=== PATIENT | female | born 1980 | race Asian ===

== ENCOUNTER 2017-12-24 01:45 | Emergency (ER) | payer OTHER ==
[~2017-12-24] VITALS: Ht 149.9 cm; Wt 49.9 kg
[2017-12-24 02:04] VITALS: Ht 149.9 cm; Wt 49.9 kg
[2017-12-24 02:54] VITALS: BP 141/94
== END 2017-12-24 02:54 | disposition home or self-care (01) ==
LOC: ED 01:45
DX: M54.2 Cervicalgia (principal); Z88.2 Allergy status to sulfonamides
CPT/HCPCS: J1885

== ENCOUNTER 2017-12-28 20:05 | Emergency (ER) | payer OTHER ==
[~2017-12-28] VITALS: Ht 149.9 cm; Wt 50.8 kg
[2017-12-28 20:45] VITALS: Ht 149.9 cm; Wt 50.8 kg
[2017-12-29 00:03] VITALS: BP 146/122
== END 2017-12-29 00:03 | disposition home or self-care (01) ==
LOC: ED 20:05
DX: M54.12 Radiculopathy, cervical region (principal); Z88.2 Allergy status to sulfonamides

== ENCOUNTER 2018-02-08 17:11 | Emergency (ER) | payer OTHER ==
[~2018-02-08] VITALS: Ht 149.9 cm; Wt 51.7 kg
[2018-02-08 17:28] VITALS: Ht 149.9 cm; Wt 51.7 kg
[2018-02-08 22:12] VITALS: BP 129/78
== END 2018-02-08 22:12 | disposition home or self-care (01) ==
LOC: ED 17:11
DX: M54.12 Radiculopathy, cervical region (principal); Z88.2 Allergy status to sulfonamides; Z87.442 Personal history of urinary calculi
CPT/HCPCS: Q0092

== ENCOUNTER 2018-08-01 19:01 | Emergency (ER) | payer OTHER ==
[~2018-08-01] VITALS: Ht 149.9 cm; Wt 57.2 kg
[2018-08-01 19:08] VITALS: Ht 149.9 cm; Wt 57.2 kg
[2018-08-01 21:12] LABS: PLATELET COUNT 257 x10^3mcL (130-400); RED CELL DISTRIBUTION WIDTH 14.9 % (11.5-14.5)
[2018-08-01 21:18] LABS: CALCIUM 8.3 mg/dL (8.5-10.1); CARBON DIOXIDE 25.7 mmol/L (21-32); CHLORIDE SERUM 106 mmol/L (98-107); GFR1 > 60 mL/min; GLUCOSE SERUM 95 mg/dL (74-106); POTASSIUM SERUM 4.2 mmol/L (3.5-5.1); SODIUM SERUM 139 mmol/L (136-145)
[2018-08-01 21:23] LABS: ALBUMIN 3.6 g/dL (3.4-5.0); ALKALINE PHOSPHATASE 56 U/L (46-116); ALT/SGPT 16 U/L (14-59); AST/SGOT 18 U/L (15-37); BILIRUBIN TOTAL 0.25 mg/dL (0.20-1.00); TOTAL PROTEIN, SERUM 7.6 g/dL (6.4-8.2)
[2018-08-01 22:45] LABS: UA SPECIFIC GRAVITY >=1.030 (1.005-1.035); microscopic required? YES; urine erythrocyte 1+ (NEGATIVE)
[2018-08-02 01:49] VITALS: BP 116/63
== END 2018-08-02 01:49 | disposition home or self-care (01) ==
LOC: ED 19:01
PROVIDERS: Emergency Medicine
DX: N20.0 Calculus of kidney (principal); R10.9 Unspecified abdominal pain; Z88.2 Allergy status to sulfonamides; Z98.890 Other specified postprocedural states
CPT/HCPCS: 36415; J1885; Q0092; Q0162

== ENCOUNTER 2019-02-14 09:04 | Emergency (ER) | payer OTHER ==
[~2019-02-14] VITALS: Ht 149.9 cm; Wt 58.1 kg
[2019-02-14 09:09] VITALS: Ht 149.9 cm; Wt 58.1 kg
[2019-02-14 11:24] LABS: UA SPECIFIC GRAVITY 1.025 (1.005-1.035); microscopic required? YES; urine erythrocyte 3+ (NEGATIVE)
[2019-02-14 12:18] VITALS: BP 130/74
== END 2019-02-14 12:18 | disposition home or self-care (01) ==
LOC: ED 09:04
PROVIDERS: Emergency Medicine
DX: M62.838 Other muscle spasm (principal); M54.2 Cervicalgia; M51.36 Other intervertebral disc degeneration, lumbar region; Z88.2 Allergy status to sulfonamides; Z98.890 Other specified postprocedural states; Z87.442 Personal history of urinary calculi
CPT/HCPCS: J1100; J1885

== ENCOUNTER 2019-04-27 20:29 | Emergency (ER) | payer OTHER ==
[~2019-04-27] VITALS: Ht 149.9 cm; Wt 54.4 kg
[2019-04-27 20:39] VITALS: Ht 149.9 cm; Wt 54.4 kg
[2019-04-27 22:02] VITALS: BP 133/90
== END 2019-04-27 22:02 | disposition home or self-care (01) ==
LOC: ED 20:29
DX: S76.912A Strain of unspecified muscles, fascia and tendons at thigh level, left thigh, initial encounter (principal); S99.921A Unspecified injury of right foot, initial encounter; Z87.442 Personal history of urinary calculi; Z98.890 Other specified postprocedural states; Z88.2 Allergy status to sulfonamides; W01.198A Fall on same level from slipping, tripping and stumbling with subsequent striking against other object, initial encounter; Y93.89 Activity, other specified; Y92.89 Other specified places as the place of occurrence of the external cause; Y99.8 Other external cause status